=== PATIENT | male | born 1975 | race Caucasian/White ===

== ENCOUNTER 2022-12-29 10:04 | Inpatient (IN) | payer BC, SELFPAY ==
[2022-12-29] VITALS (10 sets, daily range): BP systolic 160–220; BP diastolic 104–157; PULSE 70–99; RESP 12–18; TEMP 36.6–36.9; O2SAT 95–99; BMI 26.6; BMI 23.1
--- NOTE | 2022-12-29 10:31 | RAD_ITS ---
STUDY: X-RAY CHEST REASON FOR EXAM: Male, 47 years old. HTN TECHNIQUE: Single AP portable view of the chest. COMPARISON: None. FINDINGS: EKG electrodes are seen. The lungs are clear and expanded. There is no demonstrated pleural abnormality. Normal size heart. Normal mediastinum and luis m. Normal visualized pulmonary arteries. Normal visualized aortic arch and descending thoracic aorta. Normal visualized thoracic spine. Normal visualized ribs, clavicles, and shoulders. There is no demonstrated abnormality of the visualized soft tissue structures of the upper abdomen. RAD/Chest 1 View (Portable) IMPRESSION: Normal x-ray examination of the chest. Electronically Signed: Ventura Ojeda MD at 12:12 EST ,
--- NOTE | 2022-12-29 10:32 | EKG12_ITS ---
Test Reason : HTN Blood Pressure : / mmHG Vent. Rate : 083 BPM Atrial Rate : 083 BPM P-R Int : 152 ms QRS Dur : 090 ms QT Int : 394 ms P-R-T Axes : 070 -22 162 degrees QTc Int : 462 ms Normal sinus rhythm Possible Left atrial enlargement Left ventricular hypertrophy with repolarization abnormality ( R in aVL ) Cannot rule out Septal infarct , age undetermined Abnormal ECG Confirmed by TATUM CORONA, KIMBERLY ([id number]), video editor VERNELL ALVAREZ ([id number]) on 12/31/2022 10:18:44 AM Referred By: NELIDA Confirmed By:KIMBERLY WINN MD
--- NOTE | 2022-12-29 10:33 | CT_ITS ---
STUDY: CT BRAIN WITHOUT CONTRAST REASON FOR EXAM: Male, 47 years old. HTN. Blurry vision. Retinal hemorrhage. RADIATION DOSAGE (If Supplied By Facility): CTDIvol = ( 44.99 ) mGy, DLP = ( 779.24 ) mGycm TECHNIQUE: Transaxial CT imaging of the brain was performed without administration of intravenous contrast material. Individualized dose optimization techniques were used for this CT. COMPARISON: No relevant priors. FINDINGS: Normal soft tissue structures. Normal calvarium. Normal size ventricles and extra-axial spaces for the patient''s age. Focal area of decreased attenuation in the right frontal lobe. This may represent subacute ischemic change. Correlation with MRI is recommended. Normal basal ganglia and thalami. Decreased attenuation is seen in the midbrain. Normal cerebellum. There is no intracranial hemorrhage. There are no findings of an acute ischemic infarction. Normal visualized paranasal sinuses. CT/Brain/Head without Contrast IMPRESSION: Focal irregular decreased attenuation the right frontal lobe. This may represent subacute ischemic change. Decreased attenuation in the midbrain and the cerebellar peduncles. Correlation with MRI is recommended. Electronically Signed: Ventura Ojeda MD at 12:18 EST ,
--- NOTE | 2022-12-29 10:34 | EX.ED.DYSGE1 ---
HPI History of Present Illness Chief Complaint: Hypertension Informant: patient Narrative Narrative: Patient sent from [facility] secondary to hypertension. He reports having blurry vision for the last several months. He went in today for an eye appointment and was found to have retinal hemorrhage secondary to high blood pressure. He does not have a primary care physician. He states last time his blood pressure was checked was probably when he was in the service. [facility] Medical History ALL (acute lymphoid leukemia) in remission Allergy/AdvReac Type Severity Reaction Status Date / Time No Known Allergies Allergy Verified 12/29/22 10:05 Social History Smoking Status: Current every day smoker tobacco type: cigarettes ROS ROS ED Constitutional Constitutional ED: Denies chills or fever(s) Eyes Eyes: Reports blurry vision bilateral (Blurry vision left eye, sees spots from the right eye) and change in vision; Denies discharge from eye(s) ENT ENT ED: Denies discharge from eye(s), rhinorrhea or sore throat Cardiovascular Cardiovascular: Denies chest pain or palpitations Respiratory/Chest Respiratory/Chest: Denies cough or dyspnea Gastrointestinal Gastrointestinal: Denies abdominal pain, diarrhea, nausea or vomiting Genitourinary Genitourinary ED: Denies dysuria Musculoskeletal Musculoskeletal: Denies back pain or extremity pain Integumentary Denies Abrasions or rash Neurologic Neurologic: Denies headache(s) or weakness Psychiatric Psychiatric: Denies anxiety or depression Allergic/Immunologic Allergic/Immunologic ED: Denies lip swelling or urticaria EXAM Physical Exam Const Vital Signs: 12/29/22 10:05 12/29/22 11:04 12/29/22 12:04 Temperature 97.8 F Temperature Source Temporal Pulse Rate 99 70 Respiratory Rate 18 18 Respiratory Effort Normal Respiratory Pattern Normal Blood Pressure 220/157 H 200/129 H Blood Pressure Mean 178 152 Pulse Ox 99 96 Oxygen Delivery Method Room Air Room Air Positive well nourished and well developed General Appearance ED: well developed HEENT Reports normocephalic and head/scalp atraumatic Eyes PERRL and EOMs intact bilaterally Neck supple Chest Wall inspection of chest normal and palpation of chest normal Resp normal respiratory effort and clear to auscultation bilaterally Cardio regular rate and regular rhythm GI normal to inspection, nondistended, normoactive bowel sounds Palpation: soft Extremity normal to inspection Neuro oriented x3 and no sensory deficits noted Sensorium / Orientation: alert Motor Exam: strength 5/5 throughout Psych mental status grossly normal Skin no rashes or lesions noted MDM MDM MDM Narrative Medical decision making narrative: 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 CT scan of the head obtained along with lab work and EKG/chest x-ray. We are evaluating for damage to the brain, heart, kidneys which are typically first affected by high blood pressure. Lab Data Attestation: I reviewed the patient's lab results. Labs: Laboratory Results - last 24 hr 12/29/22 12/29/22 11:10 11:10 WBC 9.7 RBC 5.43 Hgb 16.5 Hct 46.2 MCV 85.1 MCH 30.4 MCHC 35.7 RDW Std Deviation 37.3 RDW Coeff of Ana 12.1 Plt Count 159 MPV 11.2 Immature Gran % (Auto) 0.300 Neut % (Auto) 73.6 H Lymph % (Auto) 18.2 L Eddy % (Auto) 6.9 Eos % (Auto) 0.4 Baso % (Auto) 0.6 Absolute Neuts (auto) 7.1 Absolute Lymphs (auto) 1.77 Nucleated RBC % 0 Sodium 137 Potassium 3.2 L Chloride 100 Carbon Dioxide 32.0 Anion Gap 5 BUN 14 Creatinine 1.30 Estim Creat Clear Calc 71.76 Est GFR (MDRD) Af Amer 77 Est GFR (MDRD) Non-Af 63 BUN/Creatinine Ratio 10.8 Glucose 117 H Calcium 9.5 Troponin I High Sens 34 Radiography Chest X-Ray - ED: 1 View, Read by ED Physician, Normal, Heart, Lungs and Mediastinum Diagnostic Testing: Clinical Impression(s) from Imaging Studies Chest X-Ray 12/29/22 10:31 IMPRESSION: Normal x-ray examination of the chest. Electronically Signed: Ventura Ojeda MD at 12:12 EST , Brain CT 12/29/22 10:33 IMPRESSION: Focal irregular decreased attenuation the right frontal lobe. This may represent subacute ischemic change. Decreased attenuation in the midbrain and the cerebellar peduncles. Correlation with MRI is recommended. Electronically Signed: Ventura Ojeda MD at 12:18 EST , EKG Initial EKG: Attestation: I personally reviewed and interpreted this EKG as follows: Interpretation: Sinus Rhythm (Sinus at 83 with LVH.) Treatment and Re-Evaluation Narrative: Patient is initially given 10 mg of IV labetalol. Blood pressure remains elevated around 220 systolic. He is given 20 mg of IV labetalol and systolic blood pressure at this time is 195. CBC is reviewed and unremarkable. Chemistry studies significant only for slightly low potassium at 3.2. Troponin is normal at 34. Chest x-ray per my interpretation reveals no acute findings. Radiology interpretation is reviewed. CT scan of the head reveals a focal irregular decreased attenuation of the right frontal lobe which may represent a subacute ischemic event. At this time patient's resting comfortably with no significant complaints. His systolic blood pressure is down approximately 30 points at this time. We will do another dose of labetalol for further blood pressure control. I will speak with hospitalist regarding admission for MRI and further neuro work-up as well as blood pressure control. Discharge Plan Triage Chief Complaint: Hypertension ED Provider: Reshma Gann Dx/Rx/DC Orders Clinical Impression: Hypertensive emergency Primary Care Provider: Care Physician,No Primary Referrals: Care Physician,No Primary [Primary Care Provider] - Disposition Disposition: Acute Care Hospital [facility]
--- NOTE | 2022-12-29 10:41 | NURSING ---
NO OLD EKGS
[2022-12-29 11:18] LABS: Absolute Lymphocyte Count 1.77 X10^3/uL (0.83-4.51); Absolute Neutrophil Count 7.1 X10^3/uL (2.0-7.7); Basophil# 0.06 X10^3/uL; Basophil% 0.6 % (0-1); Eosinophil# 0.04 X10^3/uL; Eosinophils% 0.4 % (0-5); Hematocrit 46.2 % (40-54); Hemoglobin 16.5 g/dL (13.0-16.5); Lymphocyte # 1.77 X10^3/ul (0.83-4.51); Lymphocyte % 18.2 % (19-41); Mean Corp Hgb Conc 35.7 g/dL (32-36); Mean Corpuscular Hgb 30.4 pg (27.0-32.0); Mean Corpuscular Volume 85.1 fL (80-94); Mean Platelet Vol. 11.2 fl (6.2-12.0); Monocyte# 0.67 X10^3/uL; Monocyte% 6.9 % (0-10); NRBC Flagged by Analyzer 0 % (0-5); Neutrophil # 7.14 X10^3/uL (2.7-7.7); Neutrophil % 73.6 % (47-70); Platelet Count 159 K/mm3 (150-450); RBC Distribution Width CV 12.1 % (11.6-14.6); RBC Distribution Width SD 37.3 fl (35.1-43.9); Red Blood Count 5.43 M/mm3 (4.6-6.2); White Blood Count 9.7 K/mm3 (4.4-11.0)
[2022-12-29] MEDS: Labetalol (Prefilled) 20 MG/4 ML 10 MG IV (11:21)
[2022-12-29 11:36] LABS: Anion Gap 5 (5-15); BUN 14 mg/dL (7-18); BUN/Creat Ratio 10.8 RATIO (10-20); Calcium,Total 9.5 mg/dL (8.5-10.1); Chloride 100 mmol/L (98-107); EST Glomerular Filtration Rate 63 mL/min (>60); Est Glom Filt Rate - Afr Amer 77 mL/min (>60); Estimated Creatinine Clearance 71.76 ml/min; Glucose 117 mg/dL (74-106); Potassium 3.2 mmol/L (3.5-5.1); Sodium Level 137 mmol/L (136-145); Troponin-I HS 34 pg/mL (3.0-78.0)
[2022-12-29] MEDS: Potassium Chloride Oral Tablet 20 MEQ 40 MEQ PO (12:24)
[2022-12-29] MEDS: Labetalol (Prefilled) 20 MG/4 ML IV ×3 (12:25→14:39)
--- NOTE | 2022-12-29 13:38 | NURSING ---
PCU JOPPJACQUELINE HYPERTENSION, RETINAL HEMORRHAGES, SUBACUTE CVA
--- NOTE | 2022-12-29 13:59 | HP.PCM.HOS_ITS ---
HPI - General General Date of Admission: 12/29/22 Date of Service: 12/29/22 Chief Complaint: hypertensive emergency HPI Narrative IAN TORRES, is a 47 M who presents from his commercial construction superintendent office with blood pressure in the 230s. Patient was seeing an commercial construction superintendent because of visual changes that he has been having recently. 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 [employer] had seen retinal hemorrhages but sent the patient over to the emergency room because of the high blood pressure. On arrival here, blood pressure was noted to be 220/157. Patient has received several rounds of labetalol and most recent blood pressure is 172/123. Patient has not seen a doctor regularly. The commercial construction superintendent, Dr. Tyler, state that with the retinal hemorrhages that the patient to follow up as outpatient. Patient says he has been having some headaches recently. He denies any unilateral paresthesias or difficulty speaking. Patient did have a CAT scan that showed a subacute right stroke. [facility] Medical History (Updated 12/29/22 @ 14:[address] Memo Harris DO) ALL (acute lymphoid leukemia) in remission HTN (hypertension) Retinal hemorrhage Home Medications NK 12/29/22 [History Last Taken Unknown] Allergy/AdvReac Type Severity Reaction Status Date / Time No Known Allergies Allergy Verified 12/29/22 10:05 Family History (Updated 12/29/22 @ 14:[address] Memo Harris DO) Grandmother CVA (cerebral vascular accident) Social History (Updated 12/29/22 @ 14:[address] Memo Harris DO) adopted: No Smoking Status: Heavy Smoker (>10/day) alcohol intake: former substance use type: does not use ROS ROS Narrative All review of systems were negative except as mentioned above in the history of present illness and the other review of systems. Vital Signs Vital Signs Vital Signs: 12/29/22 10:05 12/29/22 11:04 12/29/22 12:04 Temperature 36.6 C Temperature Source Temporal Pulse Rate 99 70 Respiratory Rate 18 18 Respiratory Effort Normal Respiratory Pattern Normal Blood Pressure 220/157 H 200/129 H Blood Pressure Mean 178 152 Pulse Ox 99 96 Oxygen Delivery Method Room Air Room Air 12/29/22 13:11 Temperature Temperature Source Pulse Rate 70 Respiratory Rate 14 Respiratory Effort Respiratory Pattern Blood Pressure 172/123 H Blood Pressure Mean 139 Pulse Ox 95 Oxygen Delivery Method Room Air Weight Weight: 81.647 kg Body Mass Index (BMI) 26.6 Physical Exam Const alert and no apparent distress HEENT normocephalic, head/scalp atraumatic and hearing grossly normal bilaterally Eyes PERRL and EOMs intact bilaterally Neck no lymphadenopathy Neck Narrative: No thyromegaly Resp normal respiratory effort, no retractions, no use of accessory muscles and clear to auscultation bilaterally Cardio regular rate, regular rhythm, S1 normal heart sound and S2 normal heart sound GI normal to inspection, nondistended, normoactive bowel sounds, soft to palpation, non-tender and non-distended Extremity normal to inspection and full ROM Neuro oriented x3, CN's II-XII intact bilaterally, moves all extremities and no focal motor deficits Sensorium / Orientation: awake and alert Coordination / Balance: domnxo-zz-lend test normal and [id number] test normal Speech: speech normal Motor Exam: strength 5/5 throughout Psych affect normal Results Lab / Micro Data Attestation: I reviewed the patient's lab results. Result Diagrams: 12/29/22 11:10 12/29/22 11:10 Labs: Laboratory Results - last 24 hr 12/29/22 11:10: WBC 9.7, RBC 5.43, Hgb 16.5, Hct 46.2, MCV 85.1, MCH 30.4, MCHC 35.7, RDW Std Deviation 37.3, RDW Coeff of Ana 12.1, Plt Count 159, MPV 11.2, Immature Gran % (Auto) 0.300, Neut % (Auto) 73.6 H, Lymph % (Auto) 18.2 L, Mathews % (Auto) 6.9, Eos % (Auto) 0.4, Baso % (Auto) 0.6, Absolute Neuts (auto) 7.1, Absolute Lymphs (auto) 1.77, Nucleated RBC % 0 12/29/22 11:10: Sodium 137, Potassium 3.2 L, Chloride 100, Carbon Dioxide 32.0, Anion Gap 5, BUN 14, Creatinine 1.30, Estim Creat Clear Calc 71.76, Est GFR (MDRD) Af Amer 77, Est GFR (MDRD) Non-Af 63, BUN/Creatinine Ratio 10.8, Glucose 117 H, Calcium 9.5, Troponin I High Sens 34 Radiology Impression Chest X-Ray 12/29/22 10:31 IMPRESSION: Normal x-ray examination of the chest. Electronically Signed: Ventura Ojeda MD at 12:12 EST , Brain CT 12/29/22 10:33 IMPRESSION: Focal irregular decreased attenuation the right frontal lobe. This may represent subacute ischemic change. Decreased attenuation in the midbrain and the cerebellar peduncles. Correlation with MRI is recommended. Electronically Signed: Ventura Ojeda MD at 12:18 EST , Assessment & Plan Assessment/Plan (1) Hypertensive emergency: PLAN: Improved. Hypertensive emergency with patient with retinal hemorrhages Blood pressure improved with labetalol he received in the emergency room Continue with as needed labetalol Start lisinopril 20 mg daily (2) CVA (cerebral vascular accident): PLAN: Unused location for this being a stroke related with hypertension Check an MRI, check echocardiogram Start statin Hold antiplatelets given the retinal hemorrhages for now. (3) Hypokalemia: PLAN: Replacement emergency room Follow-up in the a.m. Check magnesium and replace of low (4) Retinal hemorrhage: PLAN: Likely due to hypertensive emergency Patient to follow up with ophthalmology as outpatient next week with Dr. Tyler PLAN: Plan VTE prophylaxis with SCDs. Holding off and chemical prophylaxis on account of the retinal hemorrhages Family present at bedside. All questions were answered. Discussed with patient the importance of him having primary care physician to follow up with in regards to his hypertension management and also routine screening. Patient was inquiring about FMLA forms. I advised him that it is unclear from my perspective how long he will be unable to perform his duties and that is why is important for him to have a primary care physician. Will request that case management to assist the patient in finding a primary care physician. Charges/Coding Visit Charges Inpatient E&M: 18136 Init Hosp L3
--- NOTE | 2022-12-29 14:06 | MRI_ITS ---
INDICATION: CVA EXAMINATION: MRI - MR Brain WO/W Contrast TECHNIQUE: MRI examination of brain fusion protocol including multiplanar multiecho pre and postcontrast imaging. IV Contrast Dosage and Agent: 16 mL Clariscan COMPARISON: CT examination of the same date FINDINGS: HEMISPHERES, CEREBELLUM AND BRAINSTEM: 1. The cerebral parenchyma, ventricular system, subarachnoid spaces have normal configuration and density. There is a normal gyral pattern. There is normal jiménez/white differentiation. No midline shift.. 2. There is a moderately extensive white matter signal hyperintensity involving the centrum semiovale extending into the periventricular regions bilaterally greater on RIGHT than LEFT, with several focal linear areas extending in the corpus callosum. 3. No evidence of fluid restriction or abnormal enhancement. 4. No intraparenchymal mass hemorrhage or acute territorial infarct. 5. Marked abnormality of the brainstem, particularly involving the clemente I, rostral medulla, with extension into the brachium pontis bilaterally characterized by moderate edema, elevated T2 signal without evidence of fluid restriction or abnormal enhancement. Several small cystic areas are present within the basilar clemente. No evidence of ventricular obstruction or effacement of the 4th ventricle. 6. No evidence of transforaminal herniation, Chiari malformation or transtentorial herniation. 7. Incidental note of a small meningioma along the lateral convexity of the LEFT hemisphere measuring approximately 1.2 x 0.6 cm. No mass effect or vasogenic edema noted. PITUITARY: Infundibulum and pituitary have normal configuration. Midline structures appear normal. CSF SPACES: Appropriate for age. No hydrocephalus. There is mild effacement of basal cisterns due to brainstem edema. VESSELS: 1. There are normal flow voids noted in the great vessels at the skull base ORBITS AND PARANASAL SINUSES: 1. Both globes, extraocular muscles, optic nerves and retrobulbar fat appear unremarkable. 2. Mild polypoid mucosal thickening RIGHT maxillary antrum consistent with small mucous retention cyst. Remaining paranasal sinuses are clear. BONY ELEMENTS: Bony elements of the cranial vault, facial skeleton and skull base have normal appearance. SCALP AND SOFT TISSUES: Normal appearance of the soft tissues of the scalp and the visualized face OTHER: None MRI/Brain W/WO Contrast IMPRESSION: 1. Marked abnormality of the hemispheric white matter I, as well as a significant abnormality involving the brainstem, particularly the clemente however there is extension into the midbrain, with involvement with cortical spinal tract system, as well as extension into the brachium pontis bilaterally. No evidence of abnormal enhancement or fluid restriction. No evidence of transforaminal herniation or transtentorial herniation. There is mild effacement of the basilar cistern however. 2. Differential considerations include sequelae of extensive demyelinating disease, particularly with regard to the subependymal and callosal lesions with extensive brainstem involvement. No evidence however of acute demyelination. Additional consideration could include sequelae of ADEM. 3. No evidence of hemorrhage, no abnormal enhancement, no acute territorial infarct. Electronically Signed: Emory Mckeon MD at 20:35 EST ,
--- NOTE | 2022-12-29 14:06 | ECHOD_ITS ---
Reason For Study: TIA/CVA Procedure This was a 2D Doppler, Color Flow transthoracic echocardiogram. Myocardial strain analysis was performed in this exam to aid in the assessment of cardiac function. Exam performed portable in patient room. Left Ventricle Normal LV size. Left ventricular systolic function is normal. The estimated ejection fraction is 55 %. Stage 2 diastolic dysfunction. No regional wall motion abnormalities noted. Right Ventricle Normal RV size. Normal systolic function. Atria Normal left atrium. Normal right atrium. Mitral Valve Normal mitral valve. Tricuspid Valve Normal tricuspid valve. Aortic Valve Normal aortic valve. Trisinus/trileaflet aortic valve. Pulmonic Valve Normal pulmonic valve. Great Vessels Normal aortic root. The pulmonary artery is normal size. Normal inferior vena cava. Pericardium/Pleural No pericardial effusion. Medication Performed a rapid injection of agitated mix of 9 cc saline and 1cc air to assess for atrial septal defect. MMode/2D Measurements & Calculations LVIDd: 4.8 cm IVSd: 1.4 cm LAV(MOD-bp): 36.7 ml LVIDs: 4.3 cm LVPWd: 1.1 cm FS: 10.4 % LAV(MOD-bp) Indexed: 19.7 ml/m2 LAV(MOD-sp2): 42.1 ml LAV(MOD-sp4): 26.5 ml SV(MOD-sp4): 43.4 ml LVAd ap4: 27.4 cm2 LVAd ap2: 28.6 cm2 LVLd ap4: 8.0 cm LVLd ap2: 8.1 cm EDV(MOD-sp4): 79.1 ml EDV(MOD-sp2): 87.4 ml EDV(sp4-el): 79.2 ml EDV(sp2-el): 85.2 ml LVAs ap4: 16.7 cm2 LVAs ap2: 18.7 cm2 LVLs ap4: 6.6 cm LVLs ap2: 7.2 cm ESV(MOD-sp4): 35.6 ml ESV(MOD-sp2): 42.8 ml ESV(sp4-el): 36.0 ml ESV(sp2-el): 41.3 ml EF(MOD-sp4): 54.9 % EF(MOD-sp2): 51.0 % EF(sp4-el): 54.5 % SV(MOD-sp2): 44.5 ml SV(sp4-el): 43.2 ml LA A4 area: 11.6 cm2 LA dimension(2D): 3.6 cm RA A4 area: 9.2 cm2 Time Measurements MV dec time: 0.22 sec Doppler Measurements & Calculations MV E max marck: 61.5 cm/sec Lat Peak E' Marck: 4.8 cm/sec Med Peak E' Marck: 5.2 cm/sec MV A max marck: 59.4 cm/sec E/E' lat: 12.8 E/E' med: 11.9 MV E/A: 1.0 MV V2 max: 85.6 cm/sec MV dec slope: 282.5 cm/sec2 Ao V2 max: 140.1 cm/sec MV max P.9 mmHg Ao max P.9 mmHg MV V2 mean: 55.2 cm/sec Ao V2 mean: 94.2 cm/sec MV mean P.3 mmHg Ao mean P.1 mmHg MV V2 VTI: 28.7 cm Ao V2 VTI: 27.6 cm AV (velocity ratio): 0.76 LV V1 max: 107.3 cm/sec PA V2 max: 111.2 cm/sec LV V1 max P.6 mmHg PA V2 mean: 73.6 cm/sec LV V1 mean P.3 mmHg LV V1 mean: 69.5 cm/sec LV V1 VTI: 21.1 cm ECHO/Echo Complete Interpretation Summary Normal LV size. Left ventricular systolic function is normal. The estimated ejection fraction is 55 %. Stage 2 diastolic dysfunction. The global longitudinal strain is moderately abnormal. The global longitudinal strain = -12 with apical sparing% (abnormal). Ordering Physician: Memo Harris Referring Physician: NO PCP Performed By: Vickie Smith RCS
[2022-12-29] MEDS: 0.9% Saline Lock 10 ML Syringe IV ×2 (14:39→15:14)
[2022-12-29 14:53] LABS: Troponin-I HS 36 pg/mL (3.0-78.0)
[2022-12-29] MEDS: hydrALAZINE 20 MG/ML Vial 5 MG IV (15:14)
[2022-12-29] MEDS: Lisinopril 20 MG Tablet PO (15:14)
--- NOTE | 2022-12-29 19:10 | MRI_ITS ---
STUDY: MRA OF THE HEAD WITHOUT CONTRAST REASON FOR EXAM: Male, 47 years old. cva TECHNIQUE: 3-D [id number] (TOF) imaging was performed with MIPs. The study was performed unenhanced. Noncontrast imaging with additional 3-dimensional reconstructions obtained. COMPARISON: MRI examination of the brain on the same date. FINDINGS: CAROTID VESSELS: Normal bilateral petrous carotid arteries. Normal right cavernous carotid artery with a normal supraclinoid bifurcation. Normal left cavernous carotid artery with a normal supraclinoid bifurcation. ANTERIOR CEREBRAL ARTERIES: Normal right A1 segments of the anterior cerebral artery. Normal left A1 segments of the anterior cerebral artery. Normal intact anterior communicating artery (ACOM). Normal bilateral A2 segments of the anterior cerebral arteries. MIDDLE CEREBRAL ARTERIES: Normal right M1 and M2 segments of the middle cerebral arteries, with a normal M1 bifurcation. Normal left M1 and M2 segments of the middle cerebral arteries, with a normal M1 bifurcation. POSTERIOR TO INDICATING ARTERIES: Posterior communicating arteries are not well visualized. There is origin of the RIGHT posterior cerebral artery. VERTEBRAL BASILAR SYSTEM: Normal bilateral vertebral arteries. There is a dominant LEFT vertebral artery. Normal basilar artery with a normal basilar bifurcation. The visualized bilateral superior cerebellar (SCA) arteries are normal. POSTERIOR CEREBRAL ARTERIES Normal P1, P2 and visualized P3 segments of the posterior cerebral arteries. There is origin RIGHT posterior cerebral artery with atretic RIGHT P1 segment. There is no demonstrated aneurysm of the [place]. There is no major vessel occlusion or hemodynamically significant stenosis. There is no demonstrated abnormality of the visualized brain. MRI/MRA Head ONLY without Contrast IMPRESSION: Normal MRA of the head Electronically Signed: Emory Mckeon MD at 20:39 EST ,
--- NOTE | 2022-12-29 19:10 | MRI_ITS ---
HISTORY: CVA Date: 12/29/2022 7:31 PM Technique: MR a examination of the neck obtained with standard protocol including [id number] imaging and three-dimensional reconstructions. No contrast administered. Comparison: No previous for comparison FINDINGS MRA Neck: Aortic arch: [Normal appearance of the aortic arch and origin the great vessels.] Right carotid system: There is normal appearance RIGHT common carotid, RIGHT internal carotid arteries, and the bifurcation. Normal appearance of the external carotid circulation on the RIGHT. Left carotid system: There is normal appearance of the LEFT common carotid, LEFT internal carotid, and the bifurcation. There is normal appearance of the LEFT external carotid circulation Vertebral arteries: There is normal appearance of the vertebral arteries bilaterally without focal stenosis or occlusion. Also noted dominance of the LEFT vertebral artery. Airway and soft tissues of the neck: There is normal appearance of the musculofascial planes of suprahyoid and infrahyoid neck. Normal appearance of the visualized airway. Normal appearance the visualized thyroid without masses or nodules noted. Cervical spine: Normal appearance of bony elements of the cervical spine. No focal stenosis or occlusion involving the cervical spinal canal. MRI/MRA Neck without Contrast IMPRESSION: 1. Normal MRA examination of the cervical carotid and vertebral circulation. Electronically Signed: Emory Mckeon MD at 20:44 EST ,
[2022-12-29] MEDS: Atorvastatin Calcium 80 MG Tablet PO (20:41)
[2022-12-30] VITALS (14 sets, daily range): BP systolic 142–171; BP diastolic 96–119; PULSE 65–87; RESP 14–18; TEMP 36.3–37.1; O2SAT 96–100
--- NOTE | 2022-12-30 | CYSPIN_PTH ---
PATIENT: IAN TORRES Jr. LOC: [facility] U#:[id number] AGE/SX: 47/M ROOM: [facility] RE12/29/[address]: Dr. Chino Parry MD : 1975 BED: 1 DIS: 12/31/2022 SPEC #: [id number] RECD: 12/31/22 10:59 STATUS: ÁNGEL ART #: [id number] MINNA: 12/30/22 00:[address]: Chino Parry DEPT: CYTOLOGY RECD BY: Felipe Waldron ENTERED: 12/31/22 10:59 SP TYPE: CYSPIN FL OTHR DR: Dr. Memo Harris, DO No Primary Care Phys Tissues: Cerebrospinal Fluid Procedures: Pap Stain (control) Special Stain Group II Cytospin Fluid HEADER OPERATION: Lumbar puncture PRE-OP DIAGNOSIS: White matter disease TISSUE SUBMITTED: Cerebrospinal fluid for cytology DIAGNOSIS CYTOLOGY Cerebrospinal fluid for cytology (cytospin): Paucicellular specimen, negative for malignant cells. ASCENCION:dalton 01/01/2023 CYTOLOGY STUDY Slides are reviewed. CYTOLOGY GROSS Received is 4 ml of clear fluid labeled with the patient's name and and designated per the requisition as CSF. Submitted for cytology preparation. / dalton 12/31/2022 TC:4 CPT: 57993
[2022-12-30 05:28] LABS: Anion Gap 8 (5-15); BUN 17 mg/dL (7-18); BUN/Creat Ratio 12.2 RATIO (10-20); Chloride 103 mmol/L (98-107); Cholesterol 145 mg/dL (200); Creatinine, Serum 1.39 mg/dL (0.70-1.30); EST Glomerular Filtration Rate 59 mL/min (>60); Est Glom Filt Rate - Afr Amer 71 mL/min (>60); Estimated Creatinine Clearance 67.11 ml/min; Glucose 117 mg/dL (74-106); High Density Lipoprotein 64 mg/dL; Magnesium 2.2 mg/dL (1.6-2.6); Potassium 3.1 mmol/L (3.5-5.1); Sodium Level 139 mmol/L (136-145); Thyroid Stim Hormone (TSH) 1.67 uIU/mL (0.358-3.74); Triglycerides 52 mg/dL; Very Low Density Lipoprotein 10 mg/dL (5-40)
--- NOTE | 2022-12-30 07:18 | TELEMED_ITS ---
[facility] Telemed has confirmed receipt of a request for visit. This document confirms receipt of the order initiating the consult. To find the results of the consultation, please view the patient's reports for the scanned Telemed Consult.
[2022-12-30] MEDS: Lisinopril 20 MG Tablet PO (08:28)
--- NOTE | 2022-12-30 11:10 | CASEMGMT ---
RN?CM?MANAGER EQUITY?CM?to room to meet with patient for initial transition planning/care coordination?assessment.?RN?CM?introduced self and role at [facility].? Pt voices understanding and consents to?assessment?at this time.? Pt resting in bed in no distress at this time.? Pt is A/O at this time and answers all questions appropriately.?? Care providers, pharmacy, and demographics verified/updated at this time. PCP: No PCP. Provided w/list of local PCP's. Specialists: [facility] Preferred Pharmacy: [facility] Insurance:[employer]azar Prescription Benefit:?Yes Living Will/HPOA:? Pt does not currently have LW/HCPOA and declines info at this time.? Pt made aware that he can contact as an out-pt and make appt in the future if he decides he would like to talk with someone about this or would like to utilize [facility] social work for advanced directive completion. Patient expresses understanding. LNOK: Parents, Gómez and Ama Banks. 17-yr-old son Living Arrangements: Lives w/his parents in 2-story home w/2 steps to enter. Indep. Works full-time Transportation:?Pt states drives self and states no transportation concerns at this time.? DME: ? Denies using any DME and denies needs.? HHC/SNF: No hx of either. No needs identified. Pt wishes to return home and states has no concerns with going home at time of discharge.? CM?to follow for any discharge planning/needs.? Pt voices no further concerns/needs at this time.? Advised pt to ask for?CM?if any further questions/concerns/needs arise.? Voices understanding. PLAN:??Home Chuck BSN?RN?CM ?
--- NOTE | 2022-12-30 11:53 | CASEMGMT ---
SW did not complete a PHQ9 with patient as he did not have a Stroke or TIA. Miriam Velásquez TUBING M[employer] OPERATOR CHAS
[2022-12-30 13:55] LABS: Prothrombin Time (Protime)PT. 12.6 SECONDS (11.7-14.9)
[2022-12-30 13:56] LABS: Partial Thromboplast Time 34.2 Seconds (24.1-36.2)
--- NOTE | 2022-12-30 14:20 | RAD_ITS ---
PROCEDURE: Fluoroscopic guided Lumbar Puncture. DATE: 12/30/2022. CLINICAL INDICATION: White matter disease. PHYSICIAN: Ventura Ojeda M.D. MEDICATIONS: 1% lidocaine administered subcutaneously for local anesthesia. ACCESS SITE: Lower posterior back. NEEDLE: 22-gauge spinal needle. SPECIMEN: Approximately 13 mL clear]CSF fluid. FLUOROSCOPY TIME (if supplied): (0:46) minutes/seconds. One image was submitted. COMPLICATIONS: None immediate. The risks, benefits, and alternatives to the procedure were explained to the patient. The specific risks of bleeding, infection, and neurovascular injury were detailed and accepted. Witnessed informed consent was obtained. The patient was placed on the fluoroscopic table in the prone position. The level for needle entry was determined and marked. The overlying skin was cleaned and prepped in the usual sterile fashion. 2% lidocaine was administered subcutaneously for local anesthesia. Under fluoroscopic guidance a 22-gauge spinal needle was advanced. The thecal sac was entered at the L2-L3 level vertebral level. The inner stylet was removed. There was spontaneous flow of clear CSF fluid. The patient was placed in a reversed Trendelenburg position. Approximately 13 mL of cerebrospinal fluid was collected using gravity. The specimen was collected and submitted to the laboratory for further evaluation. The needle was withdrawn,. Hemostasis was achieved and a sterile dressing placed. The patient tolerated the procedure well without any immediate complications. The patient was placed supine with head elevated and returned to the floor in stable condition. RAD/Dx Lumbar Puncture w/IMG Guide IMPRESSION: Successful fluoroscopic-guided lumbar puncture. The patient tolerated the procedure well. Electronically Signed: Ventura Ojeda MD at 15:00 EST ,
[2022-12-30] MEDS: Lidocaine 2% (20 ml mdv) 20 ML Vial (14:30)
--- NOTE | 2022-12-30 14:45 | NURSING ---
per xray, 13 cc of fluid taken off during lumbar puncture
[2022-12-30 14:46] LABS: Cytology, Body Fluid / CSF SEE PATHOLOGY REPORT
[2022-12-30 15:20] LABS: Body Fluid Mononuclear WBC # 0.003 10^3/uL
[2022-12-30 16:07] LABS: RBC Count, Spinal Fluid 7 /mm-3 (None seen)
[2022-12-30 16:09] LABS: White Count, CSF 2 /mm-3 (0 - 5)
[2022-12-30 16:29] LABS: Glucose, Body Fluid 70 mg/dL (40-70); Protein, Body Fluid 0.2 g/dL (Not Establ.)
[2022-12-30] MEDS: 0.9% Saline Lock 10 ML Syringe IV (16:42)
[2022-12-30] MEDS: Labetalol (Prefilled) 20 MG/4 ML IV (16:42)
--- NOTE | 2022-12-30 17:23 | PCM.PN.HOSP ---
Subjective Subjective Doing well, still has some blurriness in his right eye Objective Data Objective Data Vital Signs: Vital Signs Temp Pulse Resp BP Pulse Ox O2 Del Method 98.1 F 85 18 171/114 H 100 Room Air 12/30/22 16:00 12/30/22 16:00 12/30/22 16:00 12/30/22 16:00 12/30/22 16:00 12/30/22 16:00 Oxygen Delivery Method Room Air Weight: 156 lb 11.979 oz Body Mass Index (BMI) 23.1 Intake & Output: Intake and Output for Last 24 Hours 12/29/22 12/30/22 12/31/22 03:59 03:59 03:59 Intake Total 480 / 480 Balance 480 / 480 Lab / Micro Data Result Diagrams: 12/31/22 05:00 12/31/22 05:00 Labs: Laboratory Results - last 24 hr 12/30/22 04:37: Sodium 139, Potassium 3.1 L, Chloride 103, Carbon Dioxide 28.0, Anion Gap 8, BUN 17, Creatinine 1.39 H, Estim Creat Clear Calc 67.11, Est GFR (MDRD) Af Amer 71, Est GFR (MDRD) Non-Af 59 L, BUN/Creatinine Ratio 12.2, Glucose 117 H, Calcium 9.0, Magnesium 2.2, Triglycerides 52, Cholesterol 145, LDL Cholesterol 71, VLDL Cholesterol 10, HDL Cholesterol 64, TSH 1.67 12/30/22 13:30: PT 12.6, INR 1.0, APTT 34.2 12/30/22 14:31: Fluid Source Cancelled, Fluid Color Cancelled, Fluid Appearance Cancelled, Fluid WBC Cancelled, Fluid RBC Cancelled, Fluid Tot Cell Count Cancelled, Fld Polynuclear WBCs # 0.000, Fld Polynuclear WBCs % 0.0, Fluid Mononuclear WBCs 0.003, Fld Mononuclear WBCs % 100.0, Fluid Neutrophils Cancelled, Fluid Lymphocytes Cancelled, Fluid Monocytes Cancelled, Fluid Plasma Cells Cancelled, Fluid Macrophages Cancelled, Fld Mesothelial Cells Cancelled, Fluid Other Cells Cancelled, Fl Pathologist Comment Cancelled, Fluid Comment 2 Cancelled, CSF WBC 2, CSF RBC 7 H, CSF Total Cell Counted TNP 12/30/22 14:33: Fluid Glucose 70, Fluid Total Protein 0.2 Radiography Diagnostic Testing: Radiology Impression Brain MRI 12/29/22 14:06 IMPRESSION: 1. Marked abnormality of the hemispheric white matter I, as well as a significant abnormality involving the brainstem, particularly the clemente however there is extension into the midbrain, with involvement with cortical spinal tract system, as well as extension into the brachium pontis bilaterally. No evidence of abnormal enhancement or fluid restriction. No evidence of transforaminal herniation or transtentorial herniation. There is mild effacement of the basilar cistern however. 2. Differential considerations include sequelae of extensive demyelinating disease, particularly with regard to the subependymal and callosal lesions with extensive brainstem involvement. No evidence however of acute demyelination. Additional consideration could include sequelae of ADEM. 3. No evidence of hemorrhage, no abnormal enhancement, no acute territorial infarct. Electronically Signed: Emory Mckeon MD at 20:35 EST , Head MRA 12/29/22 19:10 IMPRESSION: Normal MRA of the head Electronically Signed: Emory Mckeon MD at 20:39 EST , Neck MRA 12/29/22 19:10 IMPRESSION: 1. Normal MRA examination of the cervical carotid and vertebral circulation. Electronically Signed: Emory Mckeon MD at 20:44 EST , Lumbar Puncture Fluoroscopy 12/30/22 14:20 IMPRESSION: Successful fluoroscopic-guided lumbar puncture. The patient tolerated the procedure well. Electronically Signed: Ventura Ojeda MD at 15:00 EST , Physical Exam Narrative General: Alert, Oriented x3, Cooperative, No apparent distress HEENT: Atraumatic, PERRLA, EOMI, Normocephalic Oral: Moist Mucosa Neck: Supple, No JVD Lungs: Clear to auscultation, Normal air movement, No rhonchi, No wheeze, No rales Cardiovascular: Regular rate, Regular Rhythm, Normal S1, Normal S2, No murmurs Abdomen: Soft, Non Tender, Non-Distended, No Hepato-splenomegaly Extremities: No edema, Capillary Refill Less than 3 Seconds Skin: No rashes, No breakdown Musculoskeletal: No Tenderness to Palpation of Joints or Extremities Neurological: Cranial nerves II-XII grossly intact, Motor Exam 5/5 strength throughout, Sensory exam intact to light touch and pain Psych/Mental Status: Normal Affect, Appropriate Neck Neck Narrative: No thyromegaly Assessment & Plan Assessment/Plan (1) Hypertensive emergency: (2) CVA (cerebral vascular accident): (3) Hypokalemia: (4) Retinal hemorrhage: PLAN: Plan 1. Hypertensive emergency with retinal hemorrhages ? Blood pressures were over 230 started on lisinopril ? Will add Norvasc today as well as the as needed medications that he is taking ? Appreciate [facility] neurology, we will proceed with an LP for further evaluation of this white matter disease there is some question to the possibility of childhood radiation to his brain as well as intrathecal methotrexate for a lymphoblastic leukemia though he is unsure of the details ? He does feel better with his blood pressure control, echo is pending ? We will make sure to give him a list of local primary care physicians so he can continue to have outpatient management DVT: SCDs Charges/Coding Visit Charges Inpatient E&M: 63460 Subs Hosp L2
[2022-12-30] MEDS: amLODIPine 10 MG Tablet PO (17:34)
[2022-12-30 17:40] LABS: Appearance CSF (character) CLEAR (Clear); Auto B Fluid Analyzer BKGD Ct COUNTS W/IN LIMITS (W/IN LIMITS); CSF Color COLORLESS (Colorless); Tested Tube # 3
[2022-12-30 17:42] LABS: Body Fluid QC Type(s) BF3Q,BF4Q
[2022-12-30] MEDS: hydrALAZINE 20 MG/ML Vial 5 MG IV (18:55)
[2022-12-30] MEDS: Atorvastatin Calcium 80 MG Tablet PO (20:45)
[2022-12-31] VITALS (7 sets, daily range): BP systolic 128–153; BP diastolic 79–104; PULSE 78–85; RESP 16–18; TEMP 36.6–37.2; O2SAT 97–100
[2022-12-31] MEDS: 0.9% Saline Lock 10 ML Syringe IV (00:16)
[2022-12-31] MEDS: Labetalol (Prefilled) 20 MG/4 ML IV (00:17)
[2022-12-31] MEDS: hydrALAZINE 20 MG/ML Vial 5 MG IV (00:17)
[2022-12-31 05:14] LABS: Absolute Lymphocyte Count 2.06 X10^3/uL (0.83-4.51); Absolute Neutrophil Count 5.9 X10^3/uL (2.0-7.7); Basophil# 0.06 X10^3/uL; Basophil% 0.7 % (0-1); Eosinophil# 0.07 X10^3/uL; Eosinophils% 0.8 % (0-5); Hematocrit 44.2 % (40-54); Hemoglobin 14.8 g/dL (13.0-16.5); Lymphocyte # 2.06 X10^3/ul (0.83-4.51); Lymphocyte % 23.4 % (19-41); Mean Corp Hgb Conc 33.5 g/dL (32-36); Mean Corpuscular Volume 89.5 fL (80-94); Mean Platelet Vol. 11.3 fl (6.2-12.0); Monocyte# 0.66 X10^3/uL; Monocyte% 7.5 % (0-10); NRBC Flagged by Analyzer 0 % (0-5); Neutrophil # 5.91 X10^3/uL (2.7-7.7); Neutrophil % 67.1 % (47-70); Platelet Count 173 K/mm3 (150-450); RBC Distribution Width CV 12.5 % (11.6-14.6); RBC Distribution Width SD 40.9 fl (35.1-43.9); Red Blood Count 4.94 M/mm3 (4.6-6.2); White Blood Count 8.8 K/mm3 (4.4-11.0)
[2022-12-31 05:59] LABS: Anion Gap 6 (5-15); BUN 18 mg/dL (7-18); BUN/Creat Ratio 13.8 RATIO (10-20); Chloride 107 mmol/L (98-107); EST Glomerular Filtration Rate 63 mL/min (>60); Est Glom Filt Rate - Afr Amer 77 mL/min (>60); Estimated Creatinine Clearance 71.76 ml/min; Glucose 123 mg/dL (74-106); Potassium 3.2 mmol/L (3.5-5.1); Sodium Level 141 mmol/L (136-145)
[2022-12-31] MEDS: amLODIPine 10 MG Tablet PO (06:13)
[2022-12-31] MEDS: Lisinopril 20 MG Tablet PO (06:13)
[2022-12-31] MEDS: Potassium Chloride Oral Tablet 20 MEQ 40 MEQ PO (08:15)
[2022-12-31] MEDS: Carvedilol 3.125 MG TABLET PO (10:03)
--- NOTE | 2022-12-31 10:16 | PCM.DC ---
Discharge Instructions Diet Discharge Diet: No restrictions Activity Discharge Activity: Return to Normal Activity Dressing / Incision Call your doctor if you observe: Fever of 101 or Higher, Shortness of breath, Dizziness, Fainting spells, Swelling in the ankles, Chest pain and Increased palpitations (irregular heartbeat) Follow Up Care Test Results: Test results from this visit will be discussed in further detail at your follow-up appointment, if applicable. Discharge Plan Admission Admit Date/Time: 12/29/22 13:51 Attending Provider: Chino Parry Primary Care Provider: Shavonne Vargas,Anne-Marie Primary Consulting Providers: Memo Harris Instructions Additional Instructions / Restrictions: Follow-up with your electrophysiology nurse practitioner next week for evaluation of the retinal hemorrhages, and then once you follow-up with your PCP I would obtain a referral for neurology for evaluation lumbar puncture studies as well as the abnormal MRI imaging of your brain. Discharge Orders/Prescriptions Prescriptions: New lisinopril 20 mg Tablet 20 mg PO DAILY 30 Days Qty: 30 0RF carvedilol 3.125 mg Tablet 3.125 mg PO BID 30 Days Qty: 60 0RF amlodipine 10 mg Tablet 10 mg PO DAILY 30 Days Qty: 30 0RF Referrals / Follow Up: Care Physician,No Primary [Primary Care Provider] - Within 1 Week Disposition Disposition (needs filled in before D/C Order can be placed): Home, Self Care
--- NOTE | 2022-12-31 10:56 | DS.PCM_ITS ---
Providers Date of Admission: 12/29/22 Primary Care Physician: No Primary Care Phys Reason For Visit: CVA, HTN EMERGENCY Diagnosis Discharge Diagnosis (1) Hypertensive emergency: Status: Acute Code(s): I16.1 - Hypertensive emergency (2) CVA (cerebral vascular accident): Status: Acute Code(s): I63.9 - Cerebral infarction, unspecified (3) Hypokalemia: Status: Acute Code(s): E87.6 - Hypokalemia (4) Retinal hemorrhage: Status: Acute Code(s): H35.60 - Retinal hemorrhage, unspecified eye Plan 1. Hypertensive emergency with retinal hemorrhages VTE prophylaxis with SCDs. Holding off and chemical prophylaxis on account of the retinal hemorrhages Family present at bedside. All questions were answered. Discussed with patient the importance of him having primary care physician to follow up with in regards to his hypertension management and also routine screening. Patient was inquiring about FMLA forms. I advised him that it is unclear from my perspective how long he will be unable to perform his duties and that is why is important for him to have a primary care physician. Will request that case management to assist the patient in finding a primary care physician. Medications at Discharge Home Medications amlodipine 10 mg tablet 10 mg PO DAILY 30 days #30 tabs 12/31/22 carvedilol 3.125 mg tablet 3.125 mg PO BID 30 days #60 tabs 12/31/22 lisinopril 20 mg tablet 20 mg PO DAILY 30 days #30 tabs 12/31/22 Hospital Course Operations None Procedures 2-D Echocardiogram Summary of Care Provided Minutes Spent on Discharge: 36 Hospital Course: Per HPI: IAN TORRES, is a 47 M who presents from his account representative office with blood pressure in the 230s.? Patient was seeing an account representative because of visual changes that he has been having recently.? 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 Livestock Inspector had seen retinal hemorrhages but sent the patient over to the emergency room because of the high blood pressure.? On arrival here, blood pressure was noted to be 220/157.? Patient has received several rounds of labetalol and most recent blood pressure is 172/123.? Patient has not seen a doctor regularly.? The account representative, Dr. Tyler, state that with the retinal hemorrhages that the patient to follow up as outpatient.? Patient says he has been having some headaches recently.? He denies any unilateral paresthesias or difficulty speaking.? Patient did have a CAT scan that showed a subacute right stroke. Hospital Course: 1. Hypertensive emergency with retinal hemorrhaging as well as diffuse white matter disease?47-year-old male presented to his account representative office for blurry vision and was found to have retinal hemorrhages, with blurry vision. He was sent to the emergency room where he was found to have systolic blood pressures well over 200. He was placed on as needed blood pressure medications as well as daily lisinopril. His blood pressure has improved and he does feel better. In the meantime it was felt that he could also have a stroke so an MRI was obtained which did not show any cerebral hemorrhaging or ischemia but did demonstrate diffuse white matter disease in both cerebral hemispheres as well as the brainstem and extension into the midbrain. [facility] neurology was consulted and they recommended a lumbar puncture this was obtained and does not show an infec tion so I discussed with him the possibility for discharge today since it will take several days for the other lab work to come back on his cerebrospinal fluid, and he expressed understanding the risk and benefits of discharge and would like to go home today. I did add Coreg to his Norvasc and lisinopril and he has been tolerating this well. [facility] neurology did recommend strict blood pressure control less than 140 systolic. Echo demonstrated an EF of 55% with stage II diastolic dysfunction as well as moderate global longitudinal strain. He will need a repeat MRI in 2 months and he needs to find a PCP to obtain a referral for neurology for outpatient follow-up of the lumbar puncture results and for any further studies that would need to be done. Physical Exam Narrative General: Alert, Oriented x3, Cooperative, No apparent distress HEENT: Atraumatic, PERRLA, EOMI, Normocephalic Oral: Moist Mucosa Neck: Supple, No JVD Lungs: Clear to auscultation, Normal air movement, No rhonchi, No wheeze, No rales Cardiovascular: Regular rate, Regular Rhythm, Normal S1, Normal S2, No murmurs Abdomen: Soft, Non Tender, Non-Distended, No Hepato-splenomegaly Extremities: No edema, Capillary Refill Less than 3 Seconds Skin: No rashes, No breakdown Musculoskeletal: No Tenderness to Palpation of Joints or Extremities Neurological: Cranial nerves II-XII grossly intact, Motor Exam 5/5 strength throughout, Sensory exam intact to light touch and pain Psych/Mental Status: Normal Affect, Appropriate Weight / BMI Weight Weight: 156 lb 11.979 oz Body Mass Index (BMI) 23.1 ABG / Lab / Microbiology Data Result Diagrams: 12/31/22 05:00 12/31/22 05:00 Laboratory: Laboratory Results - last 24 hr 12/30/22 13:30: PT 12.6, INR 1.0, APTT 34.2 12/30/22 14:31: Fluid Source Cancelled, Fluid Color Cancelled, Fluid Appearance Cancelled, Fluid WBC Cancelled, Fluid RBC Cancelled, Fluid Tot Cell Count Cancelled, Fld Polynuclear WBCs # 0.000, Fld Polynuclear WBCs % 0.0, Fluid Mononuclear WBCs 0.003, Fld Mononuclear WBCs % 100.0, Fluid Neutrophils Cancelled, Fluid Lymphocytes Cancelled, Fluid Monocytes Cancelled, Fluid Plasma Cells Cancelled, Fluid Macrophages Cancelled, Fld Mesothelial Cells Cancelled, Fluid Other Cells Cancelled, Fl Pathologist Comment Cancelled, Fluid Comment 2 Cancelled, CSF Appearance CLEAR, CSF Color COLORLESS, CSF WBC 2, CSF RBC 7 H, CSF Cell Count Tube # 3, CSF Total Cell Counted TNP, CSF Comment May follow 12/30/22 14:33: Fluid Glucose 70, Fluid Total Protein 0.2 12/31/22 05:00: WBC 8.8, RBC 4.94, Hgb 14.8, Hct 44.2, MCV 89.5 D, MCH 30.0, MCHC 33.5 D, RDW Std Deviation 40.9, RDW Coeff of Ana 12.5, Plt Count 173, MPV 11.3, Immature Gran % (Auto) 0.500, Neut % (Auto) 67.1, Lymph % (Auto) 23.4, Antelope % (Auto) 7.5, Eos % (Auto) 0.8, Baso % (Auto) 0.7, Absolute Neuts (auto) 5.9, Absolute Lymphs (auto) 2.06, Nucleated RBC % 0 12/31/22 05:00: Sodium 141, Potassium 3.2 L, Chloride 107, Carbon Dioxide 28.0, Anion Gap 6, BUN 18, Creatinine 1.30, Estim Creat Clear Calc 71.76, Est GFR (MDRD) Af Amer 77, Est GFR (MDRD) Non-Af 63, BUN/Creatinine Ratio 13.8, Glucose 123 H, Calcium 9.0 Radiography Diagnostic Testing: Radiology Impression Lumbar Puncture Fluoroscopy 12/30/22 14:20 IMPRESSION: Successful fluoroscopic-guided lumbar puncture. The patient tolerated the procedure well. Electronically Signed: Ventura Ojeda MD at 15:00 EST , D/C Instructions Discharge Diet: No restrictions Call your doctor if you observe: Fever of 101 or Higher, Shortness of breath, Dizziness, Fainting spells, Swelling in the ankles, Chest pain and Increased palpitations (irregular heartbeat) Meaningful Use Info Meaningful Use Diagnoses (Choose all that apply): None applicable Discharge Plan Admission Admit Date/Time: 12/29/22 13:51 Attending Provider: Chino Parry Primary Care Provider: Care Physician,Anne-Marie Primary Consulting Providers: Memo Harris Instructions Additional Instructions / Restrictions: Follow-up with your account representative next week for evaluation of the retinal hemorrhages, and then once you follow-up with your PCP I would obtain a referral for neurology for evaluation lumbar puncture studies as well as the abnormal MRI imaging of your brain. Discharge Orders/Prescriptions Prescriptions: New lisinopril 20 mg Tablet 20 mg PO DAILY 30 Days Qty: 30 0RF carvedilol 3.125 mg Tablet 3.125 mg PO BID 30 Days Qty: 60 0RF amlodipine 10 mg Tablet 10 mg PO DAILY 30 Days Qty: 30 0RF Referrals / Follow Up: Care Physician,No Primary [Primary Care Provider] - Within 1 Week Disposition Disposition (needs filled in before D/C Order can be placed): Home, Self Care Charges/Coding Visit Charges Inpatient E&M: 74329 Disch Hosp >30min
[2023-01-01 09:54] LABS: Pathologist Review Reviewed
[2023-01-05 16:09] LABS: CSF Albumin 59 mg/dL (10-45); CSF IgG 7.5 mg/dL (0.0-10.3); CSF IgG Index 0.5 (0.0-0.7); IgG Serum 1220 mg/dL (603-1613); IgG Synthesis Rate, CSF 0.8 mg/day (-9.9 TO +3.3); IgG/Alb Ratio, CSF 0.13 (0.00-0.25); Serum Albumin 4.9 g/dL (4.0-5.0)
[2023-01-06 19:56] LABS: CSF:Serum Albumin Index 12 (0-8); Myelin Basic Protein, MBP 14.3 ng/mL (0.0-4.7)
== END 2022-12-31 12:06 | disposition home or self-care (01) | DRG 305 ==
LOC: ED 12:53 → PCU 14:08
PROVIDERS: Emergency Provider Emergency Medicine; Visit Provider Family Medicine
DX: I16.1 Hypertensive emergency (principal); C91.01 Acute lymphoblastic leukemia, in remission; E87.6 Hypokalemia; I10 Essential (primary) hypertension; F17.210 Nicotine dependence, cigarettes, uncomplicated; H35.60 Retinal hemorrhage, unspecified eye; R90.89 Other abnormal findings on diagnostic imaging of central nervous system; Z79.899 Other long term (current) drug therapy; Z82.3 Family history of stroke
CPT/HCPCS: 36415; 62328; 70450; 70544; 70547; 70553; 71045; 80048; 80061; 82040; 82042; 82784; 82945; 83735; 83873; 83916; 84157; 84443; 84484; 85025; 85610; 85730; 88108; 88313; 89050; 89051; 93005; 93306; 94762; 97162; 97165; 99283; 99406; A9575; A4216

== ENCOUNTER 2023-01-02 14:27 | Day surgery (SDC) | payer BC, SELFPAY ==
[2023-01-02] VITALS (9 sets, daily range): BP systolic 125–223; BP diastolic 83–138; PULSE 81–103; RESP 16–31; TEMP 36.1–36.3; O2SAT 97–100; BMI 22.8
--- NOTE | 2023-01-02 14:55 | EDS_ITS ---
HPI History of Present Illness Chief Complaint: Hypertension Detail of Chief Complaint: Chest discomfort, problems swallowing Informant: patient Onset/Context/Timing Onset: Yesterday Context: Gradual Onset (about 20-30 min after meal last night) Timing: Continuous Quality: discomfort like something stuck Location: lower chest Current Severity: Mild Maximum Severity: Moderate Worsened by: eating/drinking, resulting in vomiting Relieved by: nothing Narrative Narrative: Patient presents with a sensation that something is stuck in his esophagus. This started last night after dinner but not while he was eating, it was 20 or 30 minutes after the meal. This included cheese sticks and baked chicken and a salad. He states ever since he has had this sensation, he has not been able to keep any food or liquids down. After he swallows something, within less than 1 minute, he has to vomit it all back up, and it feels a little better but he still has a sensation that something is stuck. He states this has happened before. Couple times in the past, he has been able to clear it by drinking fluids, and never needed to come to the ER for this, nor see a specialist, he has never had an EGD. He was here in the ER a couple days ago when someone noticed that his blood pressure was high prior to coming, and he was put on 3 new blood pressure medications, he was on no prescriptions prior to that. He states since last night, he has not been able to take any of those pills, so his blood pressure is elevated, but he has no new symptoms other than the esophageal symptoms. [facility] Medical History ALL (acute lymphoid leukemia) in remission HTN (hypertension) Retinal hemorrhage Home Medications amlodipine 10 mg tablet 10 mg PO DAILY 30 days #30 tabs 12/31/22 [Rx Last Taken Unknown] carvedilol 3.125 mg tablet 3.125 mg PO BID 30 days #60 tabs 12/31/22 [Rx Last Taken Unknown] lisinopril 20 mg tablet 20 mg PO DAILY 30 days #30 tabs 12/31/22 [Rx Last Taken Unknown] Allergy/AdvReac Type Severity Reaction Status Date / Time No Known Allergies Allergy Verified 12/29/22 10:05 Family History (Updated 12/29/22 @ 14:[address] Memo Harris, DO) Grandmother CVA (cerebral vascular accident) Social History adopted: No Smoking Status: Heavy Smoker (>10/day) alcohol intake: former substance use type: does not use ROS ROS ED Constitutional Constitutional ED: Denies chills or fever(s) Eyes Eyes: Denies change in vision or diplopia ENT ENT ED: Denies rhinorrhea or sore throat Cardiovascular Cardiovascular: Reports other Details: Chest discomfort, see HPI ; Denies palpitations Respiratory/Chest Respiratory/Chest: Denies cough or dyspnea Gastrointestinal Gastrointestinal: Reports vomiting; Denies abdominal pain, diarrhea or nausea Genitourinary Genitourinary ED: Denies dysuria or hematuria Musculoskeletal Musculoskeletal: Denies back pain or neck pain Integumentary Denies abscess or rash Neurologic Neurologic: Denies headache(s), paresthesias or weakness Psychiatric Psychiatric: Denies anxiety or suicidal thoughts EXAM Physical Exam Const Vital Signs: 01/02/23 14:28 01/02/23 15:55 01/02/23 17:00 Temperature 97 F L Temperature Source Temporal Pulse Rate 93 103 H Respiratory Rate 18 31 H Respiratory Pattern Blood Pressure 223/138 H 188/92 H 125/93 H Blood Pressure Mean 166 124 103 Blood Pressure Source Blood Pressure Position Blood Pressure Location Baseline BP Pulse Ox 99 100 Oxygen Delivery Method Room Air Room Air Oxygen Flow Rate (L/min) 01/02/23 19:28 01/02/23 19:30 Temperature 97.3 F L Temperature Source Temporal Pulse Rate 85 86 Respiratory Rate 16 16 Respiratory Pattern Normal Blood Pressure 152/92 H 136/93 H Blood Pressure Mean 112 107 Blood Pressure Source Monitor Monitor Blood Pressure Position Semi-Fowlers Semi-Fowlers Blood Pressure Location Right Arm Right Arm Baseline BP 172/110 172/110 Pulse Ox 100 100 Oxygen Delivery Method Simple Mask Simple Mask Oxygen Flow Rate (L/min) 4 2 Positive well nourished and well developed General Appearance ED: well developed and NAD HEENT Reports moist mucous membranes normocephalic and atraumatic Eyes PERRL and EOMs intact bilaterally Neck full ROM and supple Resp normal respiratory effort and clear to auscultation bilaterally Cardio regular rate and regular rhythm Heart Sounds: murmur systolic II/ soft left sternal border GI non-tender and non-distended Auscultation: normoactive bowel sounds Palpation: soft Back/Spine no CVA tenderness General Back: other FROM Extremity normal to inspection General Extremety ED: Negative for edema, pulses abnormal or tenderness General Extremity: Negative for edema or pulses abnormal Neuro oriented x3, CN's II-XII intact bilaterally and no sensory deficits noted Sensorium / Orientation: awake and alert Motor Exam: strength 5/5 throughout Skin no rashes or lesions noted and no wounds MDM MDM MDM Narrative Medical decision making narrative: We do not have GI available this weekend. Patient likely has esophageal food impaction. I think that is causing his chest discomfort. Prior to my seeing the patient because he was seen that he had chest discomfort, nursing ordered an EKG. I interpreted it. It shows no evidence of acute ischemia although he does have lateral T wave inversions these are unchanged compared to the recent EKG that he had less than 1 week ago. Because the patient has been unable to keep any oral fluids or food down, he has not been able to take his medication and as a result his blood pressure is elevated. We treated that with IV hydralazine a couple times, and we were able to get it under better control. After glucagon, the patient was feeling odd he said. He was able to get up. We checked his blood sugar it was 117. Therefore we never got to the point of trying to have him drink carbonated beverage. I discussed with surgery Dr. Lake, he came to evaluate the patient in the emergency department and called the endoscopy crew in, he was discharged from the ER to endoscopy for EGD. Lab Data Labs: Laboratory Results - last 24 hr 01/02/23 16:54 POC Glucose 117 H Discharge Plan Triage Chief Complaint: Hypertension ED Provider: Enrique Hayes Dx/Rx/DC Orders Clinical Impression: Esophageal obstruction due to food impaction, Accelerated hypertension Primary Care Provider: Care Physician,No Primary Disposition Disposition: Home, Self Care
[2023-01-02] MEDS: hydrALAZINE 20 MG/ML Vial IV (15:09)
--- NOTE | 2023-01-02 15:12 | EKG12_ITS ---
Test Reason : HTN Blood Pressure : / mmHG Vent. Rate : 086 BPM Atrial Rate : 086 BPM P-R Int : 144 ms QRS Dur : 078 ms QT Int : 380 ms P-R-T Axes : 072 -16 120 degrees QTc Int : 454 ms Normal sinus rhythm Minimal voltage criteria for LVH, may be normal variant ( Sokolow-Banks ) Septal infarct (cited on or before 29-DEC-2022) T wave abnormality, consider lateral ischemia Abnormal ECG Confirmed by KIMBERLY WINN MD ([id number]), editorial intern REGGIE LEWIS ([id number]) on 01/04/2023 11:17:11 AM Referred By: No Primary Care Physician Confirmed By:KIMBERLY WINN MD
[2023-01-02] MEDS: Glucagon 1 MG/ML Syringe IM (15:53)
[2023-01-02 17:15] LABS: Bedside Glucose 117 mg/dL (74-106)
[2023-01-02] MEDS: hydrALAZINE 20 MG/ML Vial 10 MG IV (17:43)
--- NOTE | 2023-01-02 18:15 | ED.RN ---
REPORT TO GENEVA IN ENDOSCOPY. PT OKAY FOR TRANSFER DOWN TO ENDOSCOPE
--- NOTE | 2023-01-02 18:49 | HP.PCM.SX_ITS ---
HPI - General HPI Narrative IAN TORRES, is a 47 M who presents with food impaction. The patient reports that he has been vomiting since yesterday evening when he ate chicken. He feels like something stuck in the mid chest. He says that he has had difficulty swallowing in the past. He is never had an EGD in the past. He says that he is not able to eat or drink anything and just comes right back up ever since eating dinner last night. Patient was also recently seen for hypertensive emergency room and started on medication but he has been unable to take these because of the obstruction. [facility] Medical History ALL (acute lymphoid leukemia) in remission HTN (hypertension) Retinal hemorrhage Home Medications amlodipine 10 mg tablet 10 mg PO DAILY 30 days #30 tabs 12/31/22 [Rx Last Taken Unknown] carvedilol 3.125 mg tablet 3.125 mg PO BID 30 days #60 tabs 12/31/22 [Rx Last Taken Unknown] lisinopril 20 mg tablet 20 mg PO DAILY 30 days #30 tabs 12/31/22 [Rx Last Taken Unknown] Allergy/AdvReac Type Severity Reaction Status Date / Time No Known Allergies Allergy Verified 12/29/22 10:05 Family History (Updated 12/29/22 @ 14:[address] Memo Harris DO) Grandmother CVA (cerebral vascular accident) Social History adopted: No Smoking Status: Heavy Smoker (>10/day) alcohol intake: former substance use type: does not use ROS Constitutional Constitutional: Reports anorexia; Denies chills, fatigue or fever(s) Eyes Eyes: Denies blurry vision ENT HEENT: Denies abnormal hearing Cardiovascular Cardiovascular: Denies chest pain Respiratory/Chest Respiratory/Chest: Denies cough or dyspnea Gastrointestinal Gastrointestinal: Reports dysphagia, nausea and vomiting; Denies abdominal pain, constipation or hematemesis Genitourinary Genitourinary: Denies change in urinary stream Musculoskeletal Musculoskeletal: Denies abnormal gait Integumentary Integumentary: Denies jaundice Vital Signs Vital Signs Vital Signs: 01/02/23 14:28 01/02/23 15:55 01/02/23 17:00 Temperature 97 F L Temperature Source Temporal Pulse Rate 93 103 H Respiratory Rate 18 31 H Blood Pressure 223/138 H 188/92 H 125/93 H Blood Pressure Mean 166 124 103 Pulse Ox 99 100 Oxygen Delivery Method Room Air Room Air Weight Weight: 155 lb 3.287 oz Body Mass Index (BMI) 22.8 Physical Exam Const alert and oriented x3 HEENT normocephalic Eyes PERRL Resp normal respiratory effort and normal air movement Cardio regular rate and regular rhythm GI soft to palpation, non-tender and non-distended Extremity normal to inspection Results Lab / Micro Data Labs: Laboratory Results - last 24 hr 01/02/23 16:54: POC Glucose 117 H Assessment & Plan Assessment/Plan (1) Esophageal obstruction due to food impaction: PLAN: Patient says that he has not been able to eat or drink anything since dinner last night when he ate chicken. He has had difficulty swallowing the past. Patient likely has esophageal obstruction due to food bolus. I discussed EGD with trying to pass or remove the food impaction. Patient understands the risks and is when to proceed. I explained endoscopy in detail to the patient. I explained the risks including but not limited to stroke or heart attack with anesthesia, perforation of the GI tract, bleeding, infection. I explained that any of these could necessitate further emergency surgery. The patient understands and all questions were answered sufficiently. The patient wishes to proceed with procedure. Patient was given blood pressure medications in the emergency room Tino Lake MD Pager: [facility] [address] [place] [address], [address] [place] [address] Office:
--- NOTE | 2023-01-02 19:03 | ED.RN ---
patient went to EGD at 182
--- NOTE | 2023-01-02 19:14 | OP.CCLET_ITS ---
01/02/2023 No Primary Care Physician Re : Upper GI endoscopy procedure for Gómez Banks Dear Care Physician This procedure was performed on Monday, January 02, 2023. My impressions and recommendations are as follows: Impressions : - Food at the gastroesophageal junction. Removal was successful. - Normal stomach. - Normal examined duodenum. Recommendations : - Discharge patient to home. - Resume previous diet. - Continue present medications. - Return to my office in 2 weeks. My findings are described in the full procedure note, which is enclosed. If I can be of further assistance, please feel free to contact me at Doctor phone number(s): , Work: . Sincerely, Tino Lake MD 01/02/2023 7:14:18 PM This report has been signed electronically.
--- NOTE | 2023-01-02 19:14 | OP.EGD_ITS ---
Patient Name: Gómez Banks Procedure Date: 01/02/2023 6:24 PM Date of : 1975 Age: 47 Procedure: Upper GI endoscopy Indications: Foreign body in the esophagus Providers: Tino Lake MD Medicines: General Anesthesia Patient Profile: This is a 47 year old male. Refer to note in patient chart for documentation of history and physical. Complications: No immediate complications. Procedure: Pre-Anesthesia Assessment: - Prior to the procedure, a History and Physical was performed, and patient medications and allergies were reviewed. The patient's tolerance of previous anesthesia was also reviewed. The risks and benefits of the procedure and the sedation options and risks were discussed with the patient. All questions were answered, and informed consent was obtained. Prior Anticoagulants: The patient has taken no previous anticoagulant or antiplatelet agents. After reviewing the risks and benefits, the patient was deemed in satisfactory condition to undergo the procedure. After obtaining informed consent, the endoscope was passed under direct vision. Throughout the procedure, the patient's blood pressure, pulse, and oxygen saturations were monitored continuously. The Endoscope was introduced through the mouth, and advanced to the second part of duodenum. The upper GI endoscopy was accomplished without difficulty. The patient tolerated the procedure well. Scope In: 7:06:59 PM Scope Out: 7:07:26 PM Total Procedure Duration Time 0 hours 0 minutes 27 seconds Findings: Food was found at the gastroesophageal junction. Estimated blood loss was minimal. Removal of food was accomplished. The stomach was normal. The examined duodenum was normal. Impression: - Food at the gastroesophageal junction. Removal was successful. - Normal stomach. - Normal examined duodenum. Recommendation: - Discharge patient to home. - Resume previous diet. - Continue present medications. - Return to my office in 2 weeks. Procedure Code(s): --- Professional --- 53704, Esophagogastroduodenoscopy, flexible, transoral; with removal of foreign body(s) Diagnosis Code(s): --- Professional --- T18.128A, Food in esophagus causing other injury, initial encounter T18.108A, Unspecified foreign body in esophagus causing other injury, initial encounter CPT copyright 2017 [employer]. All rights reserved. The codes documented in this report are preliminary and upon marine equipment engineer review may be revised to meet current compliance requirements. Tino Lake MD 01/02/2023 7:14:18 PM This report has been signed electronically. Number of Addenda: 0 Note Initiated On: 01/02/2023 6:24 PM
--- NOTE | 2023-01-02 19:48 | SUR.PHASEI ---
PT EDUCATED ABOUT WHAT TO WATCH FOR WITH HIGH BLOOD PRESSURE SYMPTOMS AND SIGNS AND SYMPTOMS OF ACUTE STROKE PRIOR TO DISCHARGE.
== END 2023-01-02 20:41 | disposition home or self-care (01) ==
LOC: ED 18:13 → EN 18:16
PROVIDERS: Emergency Provider Emergency Medicine; Visit Provider Surgery
PROC: 0DJ08ZZ Inspection of Upper Intestinal Tract, Via Natural or Artificial Opening Endoscopic (ICD-10-PCS; CPT 43235; principal; 2023-01-02 18:30)
DX: T18.128A Food in esophagus causing other injury, initial encounter (principal); K22.2 Esophageal obstruction; I10 Essential (primary) hypertension; F17.200 Nicotine dependence, unspecified, uncomplicated; Z79.899 Other long term (current) drug therapy; Z86.73 Personal history of transient ischemic attack (TIA), and cerebral infarction without residual deficits; X58.XXXA Exposure to other specified factors, initial encounter
CPT/HCPCS: 43247; 82962; 93005; 99283; A4216; J1610; J2405

== ENCOUNTER → 2023-02-09 | Outpatient (CLI) | payer BC, SELFPAY ==
[2023-02-09 12:28] LABS: ALB/GLOB Ratio 1.1 RATIO (0.9-2.4); AST(SGOT) 16 U/L (15-37); Alanine Aminotransfer ALT/SGPT 31 U/L (16-61); Albumin, Serum 4.1 g/dL (3.2-5.0); Alkaline Phosphatase 98 U/L (45-117); Anion Gap 6 (5-15); BUN 19 mg/dL (7-18); BUN/Creat Ratio 13.9 RATIO (10-20); Calcium,Total 9.7 mg/dL (8.5-10.1); Chloride 103 mmol/L (98-107); Creatinine, Serum 1.37 mg/dL (0.70-1.30); EST Glomerular Filtration Rate 60 mL/min (>60); Est Glom Filt Rate - Afr Amer 72 mL/min (>60); Globulin 3.7 g/dL (2.2-4.2); Glucose 93 mg/dL (74-106); Potassium 4.8 mmol/L (3.5-5.1); Protein, Total 7.8 g/dL (6.4-8.2); Sodium Level 139 mmol/L (136-145)
== END | disposition home or self-care (01) ==
LOC: BIMLAB 08:50
PROVIDERS: PCP Internal Medicine; Referring Provider Internal Medicine; Visit Provider Internal Medicine
DX: I10 Essential (primary) hypertension (principal)
CPT/HCPCS: 36415; 80053

== ENCOUNTER → 2023-03-11 | Outpatient (CLI) | payer BC, SELFPAY ==
--- NOTE | 2023-03-11 15:59 | MRI_ITS ---
STUDY: MRI BRAIN WITHOUT CONTRAST REASON FOR EXAM: Male, 47 years old. White matter lesions on 12/29/2022 MRI demyelinating disease TECHNIQUE: Standardized multiplanar fat and water weighted pulse sequences were obtained. COMPARISON: 12/29/2022 HEMISPHERES, CEREBELLUM AND BRAINSTEM: 1. The cerebral parenchyma, ventricular system, subarachnoid spaces have normal configuration. There is a normal gyral pattern. There is normal jiménez/white differentiation. No midline shift.. 2. Similar appearance of corpus callosum FLAIR hyperintense lesion. Decreased conspicuity since FLAIR hyperintensities in the right more than left polo radiata. Decreased FLAIR hyperintensity in the midbrain, clemente, and cerebellum. 3. No intraparenchymal mass, hemorrhage, or acute territorial infarct. 4. The cerebellum, brainstem, basilar and suprasellar cisterns have normal appearance. No Chiari malformation. PITUITARY: Infundibulum and pituitary have normal configuration. Midline structures appear normal. CSF SPACES: Appropriate for age. No hydrocephalus. Basal cisterns are patent. VESSELS: 1. There are normal flow voids noted in the great vessels at the skull base ORBITS AND PARANASAL SINUSES: 1. Both globes, extraocular muscles, optic nerves and retrobulbar fat appear unremarkable. 2. Right maxillary sinus mucous retention cyst. BONY ELEMENTS: Bony elements of the cranial vault, facial skeleton and skull base have normal appearance. SCALP AND SOFT TISSUES: Normal appearance of the soft tissues of the scalp and the visualized face MRI/Brain without Contrast IMPRESSION: Substantial decrease in cerebral and brainstem white matter FLAIR hyperintensities. No new abnormal finding. Electronically Signed: Nikunj Aguilar MD at 17:17 EDT ,
== END | disposition home or self-care (01) ==
LOC: MRI 15:58
PROVIDERS: PCP Internal Medicine; Visit Provider Internal Medicine
DX: G37.9 Demyelinating disease of central nervous system, unspecified (principal)
CPT/HCPCS: 70551

== ENCOUNTER → 2023-04-06 | Outpatient (CLI) | payer BC, SELFPAY ==
[2023-04-06 17:36] LABS: Anion Gap 3 (5-15); BUN 24 mg/dL (7-18); BUN/Creat Ratio 18.2 RATIO (10-20); Chloride 107 mmol/L (98-107); Creatinine, Serum 1.32 mg/dL (0.70-1.30); EST Glomerular Filtration Rate 62 mL/min (>60); Est Glom Filt Rate - Afr Amer 75 mL/min (>60); Glucose 100 mg/dL (74-106); Potassium 3.9 mmol/L (3.5-5.1); Sodium Level 138 mmol/L (136-145)
[2023-04-06 17:42] LABS: Vitamin B12 276 pg/mL (211-911); Vitamin D,25 Hydroxy 32.9 ng/mL
== END | disposition home or self-care (01) ==
LOC: BIMLAB 15:55
PROVIDERS: PCP Internal Medicine; Visit Provider Internal Medicine
DX: I10 Essential (primary) hypertension (principal); G37.9 Demyelinating disease of central nervous system, unspecified; R42 Dizziness and giddiness
CPT/HCPCS: 36415; 80048; 82306; 82607

== ENCOUNTER → 2024-05-09 | Outpatient (CLI) | payer BC, SELFPAY ==
[2024-05-09 12:20] LABS: Absolute Lymphocyte Count 2.21 X10^3/uL (0.83-4.51); Absolute Neutrophil Count 7.2 X10^3/uL (2.0-7.7); Basophil# 0.07 X10^3/uL; Basophil% 0.7 % (0-1); Eosinophil# 0.21 X10^3/uL; Hematocrit 50.2 % (40-54); Hemoglobin 16.7 g/dL (13.0-16.5); Lymphocyte # 2.21 X10^3/ul (0.83-4.51); Lymphocyte % 21.3 % (19-41); Mean Corp Hgb Conc 33.3 g/dL (32-36); Mean Corpuscular Hgb 29.7 pg (27.0-32.0); Mean Corpuscular Volume 89.3 fL (80-94); Mean Platelet Vol. 11.7 fl (6.2-12.0); Monocyte# 0.65 X10^3/uL; Monocyte% 6.3 % (0-10); NRBC Flagged by Analyzer 0 % (0-5); Neutrophil # 7.17 X10^3/uL (2.7-7.7); Neutrophil % 69.2 % (47-70); Platelet Count 239 K/mm3 (150-450); RBC Distribution Width SD 39.7 fl (35.1-43.9); Red Blood Count 5.62 M/mm3 (4.6-6.2); White Blood Count 10.4 K/mm3 (4.4-11.0)
[2024-05-09 13:14] LABS: ALB/GLOB Ratio 0.9 RATIO (0.9-2.4); AST(SGOT) 21 U/L (15-37); Alanine Aminotransfer ALT/SGPT 47 U/L (16-61); Albumin, Serum 3.8 g/dL (3.2-5.0); Alkaline Phosphatase 89 U/L (45-117); Anion Gap 5 (5-15); BUN 19 mg/dL (7-18); BUN/Creat Ratio 13.7 RATIO (10-20); Calcium,Total 9.4 mg/dL (8.5-10.1); Chloride 107 mmol/L (98-107); Cholesterol 141 mg/dL (200); Creatinine, Serum 1.39 mg/dL (0.70-1.30); EST Glomerular Filtration Rate 58 mL/min (>60); Est Glom Filt Rate - Afr Amer 70 mL/min (>60); Globulin 4.2 g/dL (2.2-4.2); Glucose 106 mg/dL (74-106); High Density Lipoprotein 45 mg/dL; Potassium 4.5 mmol/L (3.5-5.1); Sodium Level 136 mmol/L (136-145); Triglycerides 77 mg/dL; Very Low Density Lipoprotein 15 mg/dL (5-40)
[2024-05-09 13:28] LABS: Vitamin B12 416 pg/mL (211-911); Vitamin D,25 Hydroxy 29.7 ng/mL
== END | disposition home or self-care (01) ==
LOC: BIMLAB 10:59
PROVIDERS: PCP Internal Medicine; Visit Provider Internal Medicine
DX: I10 Essential (primary) hypertension (principal); E56.9 Vitamin deficiency, unspecified
CPT/HCPCS: 36415; 80053; 80061; 82306; 82607; 85025

== ENCOUNTER → 2025-05-07 | Outpatient (CLI) | payer BC, SELFPAY ==
[2025-05-07 16:42] LABS: Absolute Lymphocyte Count 2.38 X10^3/uL (0.83-4.51); Absolute Neutrophil Count 6.4 X10^3/uL (2.0-7.7); Basophil# 0.08 X10^3/uL; Basophil% 0.8 % (0-1); Eosinophil# 0.14 X10^3/uL; Eosinophils% 1.4 % (0-5); Hematocrit 51.6 % (40-54); Hemoglobin 17.4 g/dL (13.0-16.5); Lymphocyte # 2.38 X10^3/ul (0.83-4.51); Lymphocyte % 24.5 % (19-41); Mean Corp Hgb Conc 33.7 g/dL (32-36); Mean Corpuscular Hgb 29.4 pg (27.0-32.0); Mean Corpuscular Volume 87.2 fL (80-94); Mean Platelet Vol. 11.9 fl (6.2-12.0); Monocyte# 0.72 X10^3/uL; Monocyte% 7.4 % (0-10); NRBC Flagged by Analyzer 0 % (0-5); Neutrophil # 6.38 X10^3/uL (2.7-7.7); Neutrophil % 65.6 % (47-70); Platelet Count 234 K/mm3 (150-450); RBC Distribution Width CV 12.3 % (11.6-14.6); Red Blood Count 5.92 M/mm3 (4.6-6.2); White Blood Count 9.7 K/mm3 (4.4-11.0)
[2025-05-07 17:19] LABS: ALB/GLOB Ratio 1.4 RATIO (0.9-2.4); AST(SGOT) 33 U/L (<=37); Alanine Aminotransfer ALT/SGPT 39 U/L (<=46); Albumin, Serum 4.6 g/dL (3.5-5.0); Alkaline Phosphatase 97 U/L (40-129); Anion Gap 14 (5-15); BUN 13 mg/dL (4-19); BUN/Creat Ratio 9.4 RATIO (10-20); Calcium,Total 9.9 mg/dL (7.6-11.0); Carbon Dioxide 23.7 mmol/L (21.0-32.0); Chloride 103 mmol/L (98-108); Creatinine, Serum 1.43 mg/dL (0.70-1.20); EST Glomerular Filtration Rate 60 (>60); Globulin 3.3 g/dL (2.2-4.2); Glucose 102 mg/dL (70-99); Potassium 4.4 mmol/L (3.3-5.1); Protein, Total 7.9 g/dL (5.9-8.4); Sodium Level 140 mmol/L (133-145); Total Bilirubin 0.42 mg/dL (0.00-1.30); Vitamin B12 596 pg/mL (180-914); Vitamin D,25 Hydroxy 31.4 ng/mL (30-100)
== END | disposition home or self-care (01) ==
LOC: BIMLAB 15:20
PROVIDERS: PCP Internal Medicine; Referring Provider Internal Medicine; Visit Provider Internal Medicine
DX: E55.9 Vitamin D deficiency, unspecified (principal); I10 Essential (primary) hypertension; H35.60 Retinal hemorrhage, unspecified eye; E53.8 Deficiency of other specified B group vitamins
CPT/HCPCS: 36415; 80053; 82306; 82607; 85025